=== PATIENT | female | born 1995 | race African-American/Black ===

== ENCOUNTER 2016-06-13 02:25 | Emergency (ER) | payer OTHER, MEDICARE, MEDICAID ==
[~2016-06-13] VITALS: Ht 162.6 cm; Wt 65.0 kg
[~2016-06-13 02:25] MED LIST: AMIT25TA9 PO; IBUP-1724 PO; LEVO1TAB76 PO; POLY10DR3 OP
--- OUTSIDE RECORDS SUMMARY | 2016-06-13 02:28 | XMS REPORT ---
Author Author Sabiha Bradley Organization [employer] Address Unknown Phone Unavailable Care Team Providers Care Hazardous Substances Engineer Name Role Phone Sabiha Bradley CP Unavailable Allergies No Known Allergies Problems No Known Problems Medications Medication Code System Code Instructions Start Date End Date Status Dosage Keflex [facility] [address]-85 500 MG Orally Twice a day Jan 23, 2016 Jan 30, 2016 1 capsule Results No Known Results Summary Purpose eClinicalWorks Submission
--- OUTSIDE RECORDS SUMMARY | 2016-06-13 02:29 | XMS REPORT ---
Author Author Claritza Wyatt [facility] e[employer] Address Unknown Phone Unavailable Care Team Providers Care Football Scout Name Role Phone Claritza Wyatt CP Unavailable Allergies, Adverse Reactions, Alerts Substance Reaction Event Type Invega increased prolactin Drug Allergy Problems Problem Type Condition Code Onset Dates Condition Status Assessment Routine medical exam Z00.00 Active Assessment Dizziness R42 Active Assessment Encounter for immunization Z23 Active Medications Medication Code System Code Instructions Start Date End Date Status Dosage Orsythia [facility] [address]-71 0.1-20 MG-MCG Orally Daily for Three Weeks, 1 Week off 1 tablet Procedures Procedure Coding System Code Date Fluzone/Fluarix IIV4 Pfree (age 3yr & older) CPT-4 77612 Dec 31, 2015 ADMINISTRATION, 1ST IMMUNIZATION CPT-4 39054 Dec 31, 2015 OFFICE VISIT, EST-LOW COMPLEXITY (15 MIN.) CPT-4 27732 Dec 31, 2015 Vital Signs Date/Time: Dec 31, 2015 Temperature 98.5 F Height 62.5 in Weight 139.0 lbs Blood Pressure Diastolic 68 mm Hg Blood Pressure Systolic 118 mm Hg Cardiac Monitoring Heart Rate 74 /min BMI 25.02 Index Oximetry 98 % Respiratory Rate 16 /min Results No Known Results Immunizations Vaccine Administration Date Fluzone/Fluarix IIV4 Pfree (age 3yr & older) Dec 31, 2015 Summary Purpose eClinicalWorks Submission
--- OUTSIDE RECORDS SUMMARY | 2016-06-13 02:29 | XMS REPORT ---
Author Author Claritza Wyatt [facility] e[employer] Address Unknown Phone Unavailable Care Team Providers Care Spudder Name Role Phone Edmundo Claritza Unavailable Allergies No Known Allergies Problems Problem Type Condition Code Onset Dates Condition Status Assessment Dizziness R42 Active Assessment Routine medical exam Z00.00 Active Medications Medication Code System Code Instructions Start Date End Date Status Dosage Orsythia [facility] [address]-00 0.1-20 MG-MCG Orally Daily for Three Weeks, 1 Week off 1 tablet Procedures Procedure Coding System Code Date COMPREHENSIVE METABOLIC PANEL CPT-4 00769 Dec 31, 2015 TSH CPT-4 10294 Dec 31, 2015 COMPLETE CBC W/AUTO DIFF WBC CPT-4 75126 Dec 31, 2015 Results Name Result Date Reference Range Unit Abnormality Flag TSH ----TSH 1.17 [id number] 0.35-4.94 uIU/mL eGFR ----eGFR >60 [id number] >60 mL/min CBC With Platelet and Differential ----Absolute Eosinophils 0.50 [id number] 0.00-0.50 10*3 ----Absolute Monocytes 0.56 [id number] 0.30-1.00 10*3 ----Neutrophils 49 [id number] 51-75 % L ----Absolute Basophils 0.03 [id number] 0.00-0.20 10*3 ----MPV 11.5 [id number] 8.8-14.8 fL ----Monocytes 7 62334437 4-11 % ----RDW 12.7 [id number] 11.5-14.5 % ----Lymphocytes 38 62814905 20-46 % ----MCHC 31.7 96176657 32.0-36.0 g/dL L ----MCH 29.7 [id number] 27.0-32.0 pg ----MCV 93.7 [id number] 82.0-99.0 fL ----Immature Granulocytes 0.1 30752135 0.0-1.0 % ----Platelet Count 288 20151231 150-400 K/uL ----Absolute Lymphocytes 3.12 [id number] 0.80-3.30 10*3 ----Absolute Neutrophils 4.11 77107304 1.90-7.00 10*3 ----Eosinophils 6 20151231 0-4 % H ----Basophils 0 36841952 0-2 % ----WBC 8.3 57391856 4.8-10.8 K/uL ----RBC 4.41 [id number] 4.00-5.20 10*6/uL ----HGB 13.1 74502049 12.0-16.0 g/dL ----HCT 41.3 51478526 37.0-47.0 % Comprehensive Metabolic Panel (CMP) ----Chloride 106 [id number] 99-111 mEq/L ----Potassium 4.1 83167104 3.5-5.2 mEq/L ----Albumin 4.1 67324526 3.5-5.0 g/dL ----CO2 22 [id number] 22-31 mEq/L ----Alkaline Phosphatase 70 20151231 40-150 U/L ----Protein 6.7 33857391 6.1-7.7 g/dL ----Bilirubin Total 0.3 18358994 0.2-1.2 mg/dL ----Anion Gap 10 20151231 3-20 ----Calcium 9.2 72379152 8.9-10.5 mg/dL ----Globulin 2.6 03827628 1.8-4.0 g/dL ----Sodium 138 11454179 135-144 mEq/L ----BUN 7 74445909 7-19 mg/dL ----ALT (SGPT) 12 20151231 0-55 U/L ----AST (SGOT) 12 20151231 5-34 U/L ----Creatinine 0.69 [id number] 0.57-1.11 mg/dL ----Glucose 83 [id number] 70-99 mg/dL Summary Purpose eClinicalWorks Submission
--- OUTSIDE RECORDS SUMMARY | 2016-06-13 02:29 | XMS REPORT | Continuity of Care Document ---
Author Author [facility] Organization [facility] Address Unknown Phone Unavailable Care Team Providers Care Engine Manager Name Role Phone TESS WANG APRN Primary Care Physician [phone] Insurance Providers Guarantor Nomi Ruiz Address [address] [place] [address] Email DENIED/NO TO PT PORTAL Payer [facility] State Plan Policy Number [id number] Subscriber's Name Nomi Ruiz Relationship 18 Self Effective Date 15 Expiration Date 15 Payer Medicare Policy Number [id number] Subscriber's Name Nomi Ruiz Relationship 18 Self Effective Date 13 Payer [facility] Policy Number [id number] Subscriber's Name Donnie Ruiz Relationship 19 Child Group Number [id number] Chief Complaint and Reason for Visit Chief Complaint Eye Problems Reason for Visit Bacterial conjunctivitis Problems Active Problems Medical Problem Onset Date Status Abdominal pain Unknown Acute Abdominal pain Unknown Acute Back pain Unknown Acute Constipation Unknown Acute Disability, developmental Unknown Chronic Drug abuse Unknown Chronic Gastroenteritis Unknown Acute Gastroenteritis Unknown Acute Hypokalemia Unknown Resolved SIRS (systemic inflammatory response syndrome) Unknown Acute Sepsis Unknown Acute Tobacco dependence Unknown Chronic UTI (urinary tract infection) Unknown Acute Urinary tract infection Unknown Acute Urinary tract infection Unknown Acute Past Problems Medical Problem Onset Date Bacterial conjunctivitis Unknown Bacterial conjunctivitis of left eye Unknown Medications Current Home Medications Medication Dose Units Route Directions Days Qty Instructions Start Date Amitriptyline Hcl 25 Mg Tablet 25 Mg Oral Bedtime 09/20/16 Ibuprofen 200 Mg Tablet 2 Tab Oral Every 4 Hours as needed for Pain 11/23/15 Levonorgestrel-Ethin Estradiol (Orsythia-28 Tablet) 1 Each Tablet 1 Tab Oral Bedtime 11/20/15 Polymyxin B Sulf/Trimethoprim (Polymyxin B-Tmp Eye Drops) 10 Ml Drops 1 Drop Ophthalmic Four Times Daily [address] Kamlesh Cruz Rocket Motor Mechanic [address] [phone] 11/20/15 Past Home Medications Medication Directions Ordered Status Ascorbic Acid (Vitamin C) 500 Mg Tablet, 1 Tab Oral Daily 10/08/13 Discontinued Glycerin (Suppository) 1 Each Supp.rect, 1 Supp Rectally 11/28/13 Discontinued Hydrocodone/Acetaminophen ([place] 5-325 Tablet) 1 Each Tablet, 1 Tab Oral Every 4-6 Hours as needed for Pain 01/01/15 Discontinued Hydrocodone/Acetaminophen (Hydrocodon-Acetaminoph 7.5-325) 1 Tab Tablet, 1-2 Tab Oral Every 4-6 Hours as needed for Pain 12/03/13 Discontinued Ibuprofen 400 Mg Tablet, 1 Tab Oral Every 6-8 Hours as needed for Pain Discontinued Lamotrigine (Lamictal) 25 Mg Tablet, 1 Tab Oral Daily 01/01/15 Discontinued Methenamine Hippurate 1 Gm Tablet, 1 G Oral Twice A Day 10/08/13 Discontinued Methylprednisolone (Medrol) 4 Mg Tab.ds.pk, 4 Mg Oral As Directed for Pain Discontinued Nitrofurantoin Macrocrystal (Nitrofurantoin) 100 Mg Capsule, 1 Cap Oral Daily 01/01/15 Discontinued Polyethylene Glycol 3350 (Miralax) 17 Gm Powd.pack, 17 G Oral Daily for Constipation 11/28/13 Discontinued Social History Social History Problem Response Recorded Date/Time Onset Date Status Chewing Tobacco Status No 07/15/2012 11:29am Not Applicable Not Applicable Hx Substance Use No 11/23/2015 6:47pm Not Applicable Not Applicable Hx Alcohol Use Yes 11/23/2015 6:47pm Not Applicable Not Applicable Has the pt used tobacco in the last 12 months Yes 11/28/2013 8:30pm Not Applicable Not Applicable Tobacco Usage smoke 11/29/2013 10:45am Not Applicable Not Applicable Query Response Start Date Stop Date Smoking Status Current every day smoker Hospital Discharge Instructions No hospital discharge instructions. Plan of Care Discharge Date 11/23/15 7:42pm Disposition 01 DISCHARGED HOME, SELF-CARE Condition at Discharge Improved Instructions/Education Provided DI for Conjunctivitis Prescriptions See Medication Section Referrals TESS WANG APRN Address: [address] [place] [phone] AMBROCIO FIGUEROA DO Address: [address] [place] [phone] Additional Instructions/Education Gentamicin ophthalmic drops, 2 drops every 4 hours while awake for the next 7-10 days. Return to ER or see an eye doctor of your choice if not improved by Thursday. Care Plan and Goals Physician Care Plan Problem: Arterial conjunctivitis Goal: Follow up with primary care provider Instructions: Take medications and follow care plan as discussed/written Gentamicin ophthalmic drops, 2 drops every 4 hours while awake for the next 7-10 days. Return to ER or see an eye doctor of your choice if not improved by Thursday. Functional Status No functional status results. Allergies, Adverse Reactions, Alerts Allergen Type Severity Reaction Status Last Updated Paliperidone Adverse Reaction Severe STIMULATES MILK PRODUCTION Active Immunizations Query Response on File Recorded Date/Time Hx Influenza Vaccination Y 201312/02/13 4:17pm Hx Pneumococcal Vaccination N UNKNOWN DATE 12/02/13 4:17pm Hx Tetanus, Diptheria, Pertussis N UNKNOWN DATE 12/02/13 4:17pm Hx Influenza Vaccination Y 201312/02/13 4:17pm Hx Tetanus Diptheria N UNKNOWN DATE 12/02/13 4:17pm Hx Tetanus, Diptheria, Pertussis N UNKNOWN DATE 12/02/13 4:17pm Hx Tetanus Toxoid Vaccination N UNKNOWN DATE 12/02/13 4:17pm Influenza Vaccine Hx 201311/23/15 6:47pm Tdap Vaccine Hx UTD PER PT 11/23/15 7:01pm Vital Signs Acute Vital Signs Vital Response Date/Time Temperature (Fahrenheit) 98.5 deg F (96.8 - 99.1) 11/23/2015 6:26pm Temperature (Calculated Celsius) 36.64441 degrees C (36.0 - 37.3) 11/23/2015 6:26pm Pulse Rate (adult) 75 bpm (60 - 100) 11/23/2015 6:26pm Respiratory Rate 18 breaths/min (10 - 20) 11/23/2015 6:26pm O2 Sat by Pulse Oximetry 96 % (90 - 100) 11/23/2015 6:26pm Blood Pressure 110/73 mm Hg 11/23/2015 6:26pm Height (Feet) 5 feet 11/23/2015 6:26pm Height (Inches) 4.00 inches 11/23/2015 6:26pm Weight (Kilograms) 61.820 kg 11/23/2015 6:26pm Body Mass Index (BMI) 23.0 11/23/2015 6:26pm Results No known relevant diagnostic tests, laboratory data and/or discharge summary. Procedures No known history of procedures. Encounters Encounter Location Arrival/Admit Date Discharge/Depart Date Attending Provider Departed Emergency Room [facility] 11/23/15 6:11pm 11/23/15 7: 42pm AMY FAY MD Departed Emergency Room [facility] 11/20/15 1:26pm 11/20/15 1: 48pm PRISCILA GREENE APRN Recent Diagnosis
--- OUTSIDE RECORDS SUMMARY | 2016-06-13 02:29 | XMS REPORT ---
Author Author Sabiha Bradley Organization [employer]Works Address Unknown Phone Unavailable Care Team Providers Care Hvac Service Tech Name Role Phone Sabiha Bradley CP Unavailable Allergies, Adverse Reactions, Alerts Substance Reaction Event Type Invega increased prolactin Drug Allergy Problems Problem Type Condition Code Onset Dates Condition Status Assessment Dysuria R30.0 Active Medications Medication Code System Code Instructions Start Date End Date Status Dosage Nitrofurantoin Macrocrystal [facility] [address]-67 100 MG Orally BID Jan 21, 2016 Jan 26, 2016 1 capsule with food or milk Melatonin [facility] [address]-79 3 MG Orally Once a day 1 tablet at bedtime as needed with food Orsythia [facility] [address]-56 0.1-20 MG-MCG Orally Daily for Three Weeks, 1 Week off 1 tablet Amitriptyline HCl [facility] [address]-50 25 MG Orally Once a day 1 tablet at bedtime Procedures Procedure Coding System Code Date URINE CULTURE CPT-4 41606 Jan 21, 2016 OFFICE VISIT, EST-LOW COMPLEXITY (15 MIN.) CPT-4 05765 Jan 21, 2016 URINALYSIS, IN HOUSE CPT-4 00467 Jan 21, 2016 Vital Signs Date/Time: Jan 21, 2016 Temperature 98.3 F Height 62.5 in Weight 138.0 lbs Blood Pressure Diastolic 80 mm Hg Blood Pressure Systolic 110 mm Hg Cardiac Monitoring Heart Rate 84 /min BMI 24.84 Index Oximetry 98 % Respiratory Rate 14 /min Results Name Result Date Reference Range Unit Abnormality Flag In House Urinalysis, automated ----PRO trace 20160121 ----pH 7.0 20160121 ----BLO moderate 20160121 ----SG neg 20160121 ----KET neg 20160121 ----LESLIE neg 20160121 ----Color yellow 20160121 ----URO 1.0 20160121 ----Clarity sl cloudy 20160121 ----GLU neg 20160121 ----NIT positive 20160121 ----CESAR neg 20160121 Urine Culture ----Urine Culture Source: Urine Collected: 01/20 10:02 20160121 Summary Purpose eClinicalWorks Submission
[2016-06-13 02:39] VITALS: Ht 162.6 cm; Wt 65.0 kg
--- NOTE | 2016-06-13 02:42 | NUR ---
PROVIDER DR PALMA IN ROOM W/ PT.
--- NOTE | 2016-06-13 03:13 | ERPDOC ---
Departure Disposition Decision Date: Jun 13, 2016 Disposition Decision Time: 03:15 Disposition: 01 DISCHARGED HOME, SELF-CARE Impression Impression Impression: Primary Impression: Pain, dental Severity: Severe Condition: Improved Seen By: Physician only Referrals: AMBROCIO FIGUEROA DO (PCP) YOUR DENTIST Patient Instructions: Toothache (ED) Problems/Meds/Labs Reviewed?: Yes Medications reviewed and manag: Yes Additional Instructions: We have improved your pain, but you will need to follow up with your dentist to fix the underlying problem. Follow up with your dentist later today. Follow up care ordered?: Yes Mental Status: Alert HPI General Chief Complaint: Toothache Stated Complaint: TOOTH PAIN Time Seen by Provider: 02:42 Source: patient Exam Limitations: no limitations HPI Dental Initial Comments 20yo woman presents to the ER with left maxillary dental pain. Pt had dental ed repaired by a dentist 2 days ago. Had some pain so, went back yesterday where the cap was replaced. Has taken ibuprofen tonight without significant relief. Wants relief of her pain. Occurred At: home Onset: Rapid, Constant Duration: other Pain Scale: Now & Worst: 7/10 Severity: severe Location: L upper 1 - Pain Problem: other Allergies: Coded Allergies: paliperidone (Verified Adverse Reaction, Severe, STIMULATES MILK PRODUCTION, 11/20/15) Past History Past Medical History ENMT: dental problems Hx Echocardiogram: No Female: UTI, miscarriage Musculoskeletal: back pain Psychological: ADHD, OD, other Surgical History General: appendix Reproductive/: other Family History Family PMH: FOUND: cancer, other Vaccines Hx Influenza Vaccination: Yes (2013) Hx Pneumococcal Vaccination: No (UNKNOWN DATE) Hx Tetanus Diptheria: No (UNKNOWN DATE) Hx Tetanus, Diptheria, Pertuss: No (UNKNOWN DATE) Social History Sexuality: male partner Review of Systems ENMT Teeth: pain Exam General General Nourishment: well nourished, well developed, appears stated age, no acute distress, adult, thin General Body Habitus: well groomed Vital Signs: RN Vital Signs have been reviewed: Yes Height (Feet): 5 Height (Inches): 4.00 Fastrak Dental Face: NOT FOUND: bruising, erythema, swelling Jaw: NOT FOUND: asymmetry Glands: NOT FOUND: L parotid swollen, R parotid swollen Ducts: NOT FOUND: L [place]'s blocked, R Ulcero's blocked Lips: NOT FOUDN: laceration, swelling Gums: moist, pink, NOT FOUND: swelling Tongue: NOT FOUND: geographic, swelling Teeth: NOT FOUND: caries, fractures, missing Pharynx: NOT FOUND: erythema, exudate, swelling Tonsils: NOT FOUND: erythema, exudate Neck: NOT FOUND: R anterior adenopathy, R posterior adenopathy Neurologic RN Documented GCS Eye Opening: Verbal: Motor: Total: Supervisory Exam Head: atraumatic Eyes: PERRL Nares: no exudate Neck: trachea midline Chest: symmetric Abdomen: non-distended Musculoskeletal: no deformity or atrophy Neurological: no abnormal movements Skin: pink, dry Psychological: alert, appropriate Differential Diagnoses Considering: Caries, Impacted Tooth, Tooth Avulsion/Extrusion, Tooth Fracture Procedures Procedures Performed Procedures Performed: Dental Block Dental Block Procedure Dental Block : Pain Scale Pre: 8 Location: infra-orbital Method: internal approach Anesthetic: 0.5% Bupivicaine Volume of Anesthetic (cc's): 1.8 Pain Scale Post: 0 Progress Results/Orders Orders Medications Current ED Medications Bupivacaine HCl/ Epinephrine Bitart (Marcaine *Dental*) 1.8 ml O ONCE INJ Last administered on 06/13/16t 02:50; Start 06/13/16 at 03:15; Stop 06/13/16 at 03:16; Status DC Progress Progress Pain relieved. Pt plans to present to the dentist again today for re- evaluation. Discussed dx, prognosis, and tx with pt who voiced understanding. F/ u with dentist. LYNN PALMA DO Jun 13, 2016 03:13 Progress Progress Pain relieved. Pt plans to present to the dentist again today for re- evaluation. Discussed dx, prognosis, and tx with pt who voiced understanding. F/ u with dentist. LYNN PALMA DO Jun 13, 2016 03:13
[2016-06-13] MEDS ORDERED: BUPIVACAINE 0.5%/EPI 1:200K *DENTAL* 1.8ml SYRINGE INJ ONE (03:15)
[2016-06-13] MEDS ORDERED: NO ROUTINE MEDS (03:23)
[2016-06-13 03:24] VITALS: BP 119/78; PULSE 84; RESP 20; TEMP 98; O2SAT 99
--- NOTE | 2016-06-13 03:24 | NUR ---
DISCHARGE PT GIVEN INSTRUCTIONS FOR CONT CARE OF TOOTHACHE, PT VERBALIZED UNDERSTANDING AND SIGNED FORM. PT LEFT ER ALERT, VS CHARTED CONDITION IMPROVED AND PAIN RELIEVED AND NO ACUTE DISTRESS.
== END 2016-06-13 03:24 | disposition home or self-care (01) ==
LOC: ED 02:25
DX: K08.89 Other specified disorders of teeth and supporting structures (principal)

== ENCOUNTER 2016-06-15 20:01 | Emergency (ER) | payer OTHER, MEDICARE, MEDICAID ==
[~2016-06-15] VITALS: Ht 162.6 cm; Wt 66.7 kg
[~2016-06-15 20:01] MED LIST changes: +NO ROUTINE MEDS
--- OUTSIDE RECORDS SUMMARY | 2016-06-15 20:05 | XMS REPORT | Continuity of Care Document ---
Author Author [facility] Organization [facility] Address Unknown Phone Unavailable Care Team Providers Care Center Customer Service Associate Name Role Phone AMBROCIO FIGUEROA DO Primary Care Physician [phone] Insurance Providers Guarantor Nomi Ruiz Address [address] [place] [address] Email [id number] Payer [facility] Policy Number [id number] Subscriber's Name Nomi Ruiz Relationship 18 Self Effective Date 16 Expiration Date 16 Payer [employer] Policy Number [id number] Subscriber's Name Donnie Ruiz Relationship 19 Child Group Number [id number] Payer Medicare Policy Number [id number] Subscriber's Name Nomi Ruiz Relationship 18 Self Advance Directives Directive Response Recorded Date/Time Advanced Directives Type None 06/13/16 2:39am Chief Complaint and Reason for Visit Chief Complaint Toothache Reason for Visit [id number] Problems Active Problems Medical Problem Onset Date [...] Unknown Bacterial conjunctivitis of left eye Unknown Pain, dental Unknown Medications Current Home Medications Medication Dose Units Route Directions Days Qty Instructions Start Date No Routine Meds 06/13/16 Past Home Medications Medication Directions Ordered Status Ascorbic Acid (Vitamin C) 500 Mg Tablet, 1 Tab Oral Daily 10/08/13 Discontinued Glycerin (Suppository) 1 Each Supp.rect, 1 Supp Rectally 11/28/13 Discontinued Hydrocodone/Acetaminophen ([place] 5-325 Tablet) 1 Each Tablet, 1 Tab [...] Applicable Not Applicable Hx Substance Use No 06/13/2016 2:43am Not Applicable Not Applicable Hx Alcohol Use Yes 06/13/2016 2:43am Not Applicable Not Applicable Has the pt used tobacco in the last 12 months Yes 11/28/2013 8:30pm Not Applicable Not Applicable Tobacco Usage smoke 11/29/2013 10:45am Not Applicable Not Applicable Query Response Start Date Stop Date Smoking Status Current every day smoker Hospital Discharge Instructions No hospital discharge instructions. Plan of Care Discharge Date 06/13/16 3:24am Disposition 01 DISCHARGED HOME, SELF-CARE Condition at Discharge Improved Instructions/Education Provided Toothache (ED) Prescriptions See Medication Section Referrals AMBROCIO FIGUEROA DO Address: [address] [place] [phone] Note: YOUR DENTIST Note: Additional Instructions/Education We have improved your pain, but you will need to follow up with your dentist to fix the underlying problem. Follow up with your dentist later today. Care Plan and Goals Physician Care Plan Problem: Dental pain Goal: Follow up with primary care provider Instructions: Take medications and follow care plan as discussed/written Functional Status No functional status results. Allergies, [...] UNKNOWN DATE 12/02/13 4:17pm Influenza Vaccine Hx 201506/13/16 2:43am Tdap Vaccine Hx UTD PER PT 11/23/15 7:01pm Vital Signs Acute Vital Signs Vital Response Date/Time Temperature (Fahrenheit) 98.0 deg F (96.8 - 99.1) 06/13/2016 3:24am Temperature (Calculated Celsius) 36.13944 degrees C (36.0 - 37.3) 06/13/2016 3:24am Pulse Rate (adult) 84 bpm (60 - 100) 06/13/2016 3:24am Respiratory Rate 20 breaths/min (10 - 20) 06/13/2016 3:24am O2 Sat by Pulse Oximetry 99 % (90 - 100) 06/13/2016 3:24am Blood Pressure 119/78 mm Hg 06/13/2016 3:24am Height (Feet) 5 feet 06/13/2016 2:39am Height (Inches) 4.00 inches 06/13/2016 2:39am Weight (Kilograms) 65.000 kg 06/13/2016 2:39am Body Mass Index (BMI) 24.0 06/13/2016 2:39am Results No known relevant diagnostic tests, laboratory data and/or discharge summary. Procedures No known history of procedures. Encounters Encounter Location Arrival/Admit Date Discharge/Depart Date Attending Provider Departed Emergency Room [facility] 06/13/16 2:25am 04/14/17 3: 24am LYNN PALMA DO Recent Diagnosis
[2016-06-15 20:20] VITALS: Ht 162.6 cm; Wt 66.7 kg
[2016-06-15] MEDS ORDERED: HYDROCODONE/APAP 5 mg/325 mg TABLET PO ONE (21:00)
[2016-06-15] MEDS ORDERED: HYDROCODONE/APAP 5/325 (PrePack) SENT HOME ONE (21:00)
[2016-06-15] MEDS ORDERED: [UNRECOGNIZED DRUG - CODE] PO (21:13)
--- NOTE | 2016-06-15 21:13 | ERPDOC ---
Departure Disposition Decision Date: Jun 15, 2016 Disposition Decision Time: 21:10 Disposition: 01 DISCHARGED HOME, SELF-CARE Impression Impression Impression: Primary Impression: Dental abscess Severity: Moderate Condition: Stable Seen By: Physician only Referrals: AMBROCIO FIGUEROA DO (Family) YOUR DENTIST. 1 Week Patient Instructions: Dental Abscess (ED) Problems/Meds/Labs Reviewed?: Yes Medications reviewed and manag: Yes Additional Instructions: You have a dental abscess and need to follow up with a dentist for definitive treatment of your pain. Take naproxen and acetaminophen scheduled as discussed. Take the norco at night to help with pain or only when your pain exceeds the tylenol and naproxen. Follow up with the dentist DANIEL. Follow up care ordered?: Yes Mental Status: Alert, Oriented Scripts Hydrocodone/Acetaminophen (Lorcet 5-325 mg Tablet) 1 Each Tablet 1 TAB PO Q6HPRN Y for PAIN, #20 TAB Prov: JUNELYNN DO 06/15/16 HPI General Chief Complaint: Toothache Stated Complaint: TOOTH PAIN Time Seen by Provider: 20:46 Source: patient Exam Limitations: no limitations HPI Dental Initial Comments 20yo woman presents to the ER tonight with dental pain. Pt was seen in this ER two days ago for the same complaint. She was treated with bupivacaine with good relief of sx; was seen by her dentist later that day. Pt dx'ed with dental abscess and given atbx, but referred for 'root canal' with another dentist. Pt was not given anything for pain control and PCM's office was already closed. Has been using tylenol/motrin intermittently with inadequate relief of sx. Occurred At: home Onset: Rapid, Constant Duration: 1 week Pain Scale: Now & Worst: 10/10 Severity: severe Location: L upper Problem: other Associated Symptoms: other Allergies: Coded Allergies: paliperidone (Verified Adverse Reaction, Severe, STIMULATES MILK PRODUCTION, 11/20/15) Past History Past Medical History ENMT: dental problems Hx Echocardiogram: No Female: UTI, miscarriage Musculoskeletal: back pain Psychological: ADHD, OD, other Surgical History General: appendix Reproductive/: other Family History Family PMH: FOUND: cancer, other Vaccines Hx Influenza Vaccination: Yes (2013) Hx Pneumococcal Vaccination: No (UNKNOWN DATE) Hx Tetanus Diptheria: No (UNKNOWN DATE) Hx Tetanus, Diptheria, Pertuss: No (UNKNOWN DATE) Social History Sexuality: male partner Review of Systems ENMT Teeth: pain Exam General General Nourishment: well nourished, well developed, appears stated age, no acute distress, adult General Body Habitus: well groomed Vital Signs: RN Vital Signs have been reviewed: Yes Height (Feet): 5 Height (Inches): 4.00 [place] Dental Face: NOT FOUND: bruising, swelling Jaw: NOT FOUND: asymmetry Glands: NOT FOUND: L parotid swollen, R parotid swollen Ducts: NOT FOUND: L [place]'s blocked, R [place]'s blocked Lips: NOT FOUDN: laceration, swelling Gums: moist, pink, NOT FOUND: swelling Tongue: NOT FOUND: geographic, swelling Teeth: caries, NOT FOUND: fractures, missing Pharynx: NOT FOUND: erythema, exudate, swelling Tonsils: NOT FOUND: erythema, exudate Neck: NOT FOUND: R anterior adenopathy, R posterior adenopathy Neurologic RN Documented GCS Eye Opening: (4)Spontaneous Verbal: (5)Oriented Motor: (6)Obeys Commands Total: Supervisory Exam Head: atraumatic Eyes: PERRL Nares: no exudate Neck: trachea midline Chest: symmetric Abdomen: non-distended Musculoskeletal: no deformity or atrophy Neurological: no abnormal movements Skin: pink, dry Psychological: alert Differential Diagnoses Considering: Gingival Abscess, Caries, Gingivitis, Laceration, Lost Filling Progress Results/Orders Orders Procedure Category Date Status Time Hydrocodone/Acetaminophen PHA 06/15/16 Complete ([place] 5/325) 21:00 Hydrocodone/Apap PHA 06/15/16 Complete 5/325 Prepack ([place] 5 21:00 Medications Current ED Medications Acetaminophen/ Hydrocodone Bitart ([place] 5/325) 1 tab O ONCE PO Last administered on 06/15/16 21:02; Start 06/15/16 at 21:00; Stop 06/15/16 at 21:01 ; Status DC Acetaminophen/ Hydrocodone Bitart (NORCO 5 (PrePack)) 1 pack O ONCE SENT HOME Last administered on 06/15/16 21:02; Start 06/15/16 at 21:00; Stop 06/15/16 at 21:01; Status DC Progress Progress Discussed scheduling (not alternating) NSAID and acetaminophen. Will rx narcotic for breakthrough pain. Pt is not a frequent/chronic narcotic user. F/u with dentist as discussed for definitive treatment. Pt voiced understanding of dx, prognosis, and tx plan. LYNN PALMA DO Jun 15, 2016 21:13
[2016-06-15 21:20] VITALS: BP 113/61; PULSE 73; RESP 18; TEMP 98.7; O2SAT 99
--- NOTE | 2016-06-15 21:20 | NUR ---
DEPART PT GIVEN DI FOR DENTAL ABSCESS, NORCO, F/U. PREPAK/RX PROVIDED FOR NORCO. PT VERBALIZES UNDERSTANDING OF DI AND MED. QUESTIONS ASKED/ANSWERED - DENIES FURTHER QUESTIONS/NEEDS AT THIS TIME. PERSONAL BELONGINGS GATHERED. PT ESCORTED/AMBULATED TO ED EXIT - GAIT STABLE, NO SIGN OF DISTRESS.
== END 2016-06-15 21:20 | disposition home or self-care (01) ==
LOC: ED 20:01
DX: K04.7 Periapical abscess without sinus (principal); K02.9 Dental caries, unspecified